=== PATIENT | female | born 1980 | race Hispanic/Latino ===

== ENCOUNTER 2016-09-06 20:04 | Emergency (ER) | payer OTHER ==
[~2016-09-06] VITALS: Ht 165.1 cm; Wt 69.9 kg
[2016-09-06 21:02] LABS: ABSOLUTE BASOPHIL COUNT 0.1 /CUMM (0.0-0.2); ABSOLUTE EOSINOPHIL COUNT 0.1 /CUMM (0.0-0.7); ABSOLUTE GRANULOCYTE CT 8.2 /CUMM (1.4-6.5); ABSOLUTE MONOCYTE COUNT 0.8 /CUMM (0.10-0.60); BASOPHIL % 0.8 % (0.0-2.0); EOSINOPHIL % 0.8 % (0-5); GRANULOCYTE % 66.7 % (42.2-75.2); HEMATOCRIT 27.2 % (37-47); MEAN CORPUSCULAR HGB CONC 30.4 G/DL (33.0-37.0); MEAN CORPUSCULAR VOLUME 65.6 FL (81.0-99.0); MEAN PLATELET VOLUME 8.4 FL (7.4-10.4); PLATELET COUNT 354 /CUMM (130-400); RBC DISTRIBUTION WIDTH 19.4 % (11.5-14.5); RED BLOOD CELL CT 4.15 /CUMM (4.20-5.40); WHITE BLOOD CELL COUNT 12.2 /CUMM (4.8-10.8)
[2016-09-06 22:04] VITALS: BP 98/56
--- NOTE | 2016-09-06 22:10 | ED GENERAL ADULT ---
History of Present Illness General Chief Complaint: Dyspnea (COPD, CHF, Other) Stated Complaint: PT IS HAVING PALPITAION,NUMBESS,SOB Source: patient, family, old records Exam Limitations: no limitations Vital Signs & Intake/Output Vital Signs & Intake/Output Vital Signs Date Time Temp Pulse Resp B/P B/P Pulse O2 O2 Flow FiO2 Mean Ox Delivery Rate 09/06 2204 70 16 98/56 99 Room Air 09/07 2035 98.2 85 20 109/77 96 Room Air Allergies Coded Allergies: No Known Allergies (09/06/16) Triage Note: TRIAGE: PT TO ER C/C "MY HEART IS BEATING SO FAST, I HAVE SOB AND I FEEL NUMBNESS IN MY ARMS". HAD EKG DONE IN [place] PRIOR TO TRIAGE, EKG NOT VISUALIZED BY THIS RN. STATES HER DOCTOR TOLD HER SHE WAS ANEMIC 3 WEEKS AGO, TAKING IRON FOR SAME. [facility] SEEN [facility], REFERRED TO ER FOR ADDITIONAL EVAL. PT DENIES ANY PAIN. Triage Nurses Notes Reviewed? yes Onset: several days Duration: day(s):, constant, continues in ED Timing: recent history Injury Environment: home Severity: mild, moderate No Modifying Factors: none LMP (ages 10-50): unknown : No Patient currently breastfeeds: No HPI: 3 weeks prior to admission patient was started on iron for iron deficiency anemia. Several days prior to admission she complains of palpitations numbness tingling in the extremities with episodes of shortness of breath. She denies fever chills nausea vomiting diarrhea abdominal pain dysuria rash bleeding headache change in bowel bladder habit change in motor function. Past History Travel History Traveled to [place] past 21 day No Medical History Any Pertinent Medical History? none Neurological: NONE EENT: NONE Cardiovascular: NONE Respiratory: NONE Gastrointestinal: NONE Hepatic: NONE Renal: NONE Musculoskeletal: NONE Psychiatric: NONE Endocrine: NONE Blood Disorders: NONE Cancer(s): NONE FORESTRY TECHNICIAN/Reproductive: NONE Surgical History Surgical History: non-contributory Psychosocial History What is your primary language Irish Tobacco Use: Never used ETOH Use: occasional use Illicit Drug Use: denies illicit drug use Family History Hx Contributory? No Review of Systems Review of Systems Constitutional: Reports: see HPI, malaise. EENTM: Reports: no symptoms. Respiratory: Reports: no symptoms. Cardiovascular: Reports: see HPI, palpitations. GI: Reports: no symptoms. Genitourinary: Reports: no symptoms. Musculoskeletal: Reports: no symptoms. Skin: Reports: no symptoms. Neurological/Psychological: Reports: see HPI, numbness, paresthesia. Hematologic/Endocrine: Reports: no symptoms. Immunologic/Allergic: Reports: no symptoms. All Other Systems: Reviewed and Negative Physical Exam Physical Exam General Appearance: well developed/nourished, alert, awake, anxious, mild distress Head: atraumatic, normal appearance Eyes: Bilateral: normal appearance, PERRL, EOMI, pale conjunctivae. Ears, Nose, Throat: normal pharynx, normal ENT inspection Neck: normal inspection, supple, full range of motion, no midline tenderness Respiratory: normal breath sounds, chest non-tender, no respiratory distress, quiet respiration, lungs clear Cardiovascular: regular rate/rhythm, normal peripheral pulses, norml femoral pulses equa Peripheral Pulses: 4+ carotid (R), 4+ carotid (L) Gastrointestinal: normal bowel sounds, soft, non-tender, no organomegaly Back: normal inspection, normal range of motion Extremities: normal inspection, normal capillary refill, normal range of motion, no edema Neurologic/Psych: no motor/sensory deficits, awake, alert, oriented x 3, normal gait, normal mood/affect Reflexes: 2+: bicep (R), bicep (L). Skin: intact, normal color, warm/dry Lymphatic: no anterior cervical kofi Core Measures ACS in differential dx? Yes ASA ordered for poss ACS? No-ACS ruled out CVA/TIA Diagnosis: No Severe Sepsis Present: No Septic Shock Present: No Progress Differential Diagnoses I considered the following diagnoses in my evaluation of the patient: Medication reaction iron deficiency Plan of Care: Orders Procedure Date/time Status TSH REFLEX 09/06 2021 Complete TROPONIN LEVEL 09/06 2021 Complete HUMAN BETA HCG SCREEN 09/06 2021 Complete COMPREHENSIVE METABOLIC PANEL 09/06 2021 Complete CBC WITHOUT DIFFERENTIAL 09/06 2021 Complete EKG 09/06 2005 Active Laboratory Tests 09/06/162043: Anion Gap 10, Estimated GFR > 60, BUN/Creatinine Ratio 13.8, Glucose 98, Calcium 9.3, Total Bilirubin 0.3, AST 17, ALT 26, Alkaline Phosphatase 62, Troponin I < 0.01, Total Protein 7.5, Albumin 4.1, Globulin 3.4, Albumin/Globulin Ratio 1.2, TSH &T3 &Free T4 Intrp 1.780, Total Beta HCG NEGATIVE, CBC w Diff NO MAN DIFF REQ, RBC 4.15 L, MCV 65.6 L, MCH 20.0 L, RDW 19.4 H, MPV 8.4, Gran % 66.7, Lymphocytes % 24.9, Monocytes % 6.8, Eosinophils % 0.8, Basophils % 0.8, Absolute Granulocytes 8.2 H, Absolute Lymphocytes 3.0, Absolute Monocytes 0.8 H, Absolute Eosinophils 0.1, Absolute Basophils 0.1, PUBS MCHC 30.4 L Initial ED EKG: normal axis, normal intervals, normal p-waves, normal QRS complex, normal sinus rhythm, no ST T wave changes Rhythm Strip: normal sinus rhythm Departure Departure Time of Disposition: 2207 Disposition: HOME OR SELF CARE Condition: Stable Clinical Impression Primary Impression: Iron deficiency anemia Qualifiers: Iron deficiency anemia type: chronic blood loss Qualified Code: D50.0 - Iron deficiency anemia secondary to blood loss (chronic) Secondary Impressions: Medication side effects Qualifiers: Encounter type: initial encounter Qualified Code: T88.7XXA - Unspecified adverse effect of drug or medicament, initial encounter Referrals: PATIENT HAS NO PRIMARY CARE DR (PCP/Family) Additional Instructions: Decrease Ferralet to one tab daily to see if symptoms improve Departure Forms: Customer Survey General Discharge Information Critical Care Note Critical Care Note Critical Care Time: non-applicable
== END 2016-09-06 22:16 ==
LOC: ERH 20:04
PROVIDERS: Emergency Medicine
DX: T45.4X5A Adverse effect of iron and its compounds, initial encounter (principal); D50.9 Iron deficiency anemia, unspecified; R00.2 Palpitations; R20.0 Anesthesia of skin
CPT/HCPCS: 93005; 93010